=== PATIENT | female | born 1985 | race Two or more races ===

== ENCOUNTER 2018-10-11 00:32 | Emergency (ER) | payer SELFPAY ==
[~2018-10-11] VITALS: Ht 162.6 cm; Wt 74.8 kg
[~2018-10-11 00:32] MED LIST: NORPTMEDS CO
[2018-10-11 07:22] VITALS: BP 111/57
== END 2018-10-11 08:23 | disposition home or self-care (01) ==
LOC: ER 00:36
DX: G44.209 Tension-type headache, unspecified, not intractable (principal); T78.40XA Allergy, unspecified, initial encounter; X58.XXXA Exposure to other specified factors, initial encounter
CPT/HCPCS: 70450